=== PATIENT | male | born 1955 | race Caucasian/White ===

== ENCOUNTER 2024-02-17 12:14 | Emergency (ER) | payer MEDICARE, OTHER, SELFPAY ==
[2024-02-17] VITALS (7 sets, daily range): BP systolic 92–123; BP diastolic 60–71
[2024-02-17 13:22] LABS: % Basophils 0.3 % (0-2); % Immature Granulocytes 0.7 % (0-0.5); % Lymphocytes 8.5 % (20.5-51.1); % Monocytes 8.1 % (1.7-9.3); % Neutrophils 82.4 % (42.2-75.2); Absolute Immature Granulocytes 0.1 10^3/uL (0-0.05); Absolute Lymphocytes 0.9 10^3/uL (1.2-3.4); Absolute Monocytes 0.8 10^3/uL (0.1-0.6); Absolute Neutrophils 8.6 10^3/uL (1.4-6.5); Hematocrit 39.6 % (39.0-52.0); Hemoglobin 12.5 g/dL (13.0-18.0); Mean Corp Hgb Conc. 31.6 g/dL (33.0-37.0); Mean Corpuscular Volume 76.2 fL (80.0-94.0); Mean Platelet Volume 9.1 fL (7.4-10.4); Nucleated Red Blood Cells % 0 % (-); Platelet Count 264 10^3/uL (130-400); Red Cell Dist. Width 19.2 % (11.5-14.5); White Blood Cell Count 10.4 10^3/uL (4.8-10.8)
[2024-02-17 13:32] LABS: ALT (SGPT) 19 U/L (0-50); AST (SGOT) 27 U/L (17-59); Albumin 3.9 g/dl (3.5-5.0); Blood Urea Nitrogen 23 mg/dl (9-20); Carbon Dioxide 27 mmol/L (22-30); Glucose 105 mg/dl (70-99); Potassium 4.2 mmol/L (3.5-5.1); Total Bilirubin 0.5 mg/dl (0.2-1.3); Total Protein 6.3 g/dl (6.3-8.2); eGFR > 60.00
[2024-02-17] MEDS: NSS 1000 IV (13:36)
[2024-02-17 13:42] LABS: Alkaline Phosphatase 63 U/L (38-126); Calcium 9.3 mg/dl (8.4-10.2); Chloride 107 mmol/L (98-107); Sodium 139 mmol/L (135-145)
--- NOTE | 2024-02-17 14:00 | ED.GENMED ---
History of Present Illness
<Chevy Dunlap PA-C - Last Filed: 02/18/24 13:06>
General
Chief Complaint: Breathing Problem
Time Seen by Provider: 02/17/24 12:33
History of Present Illness
History of Present Illness:
68-year-old male with history of COPD and former tobacco abuse presents to the emergency department for evaluation of general malaise and fatigue for the past 2 weeks. He also reports exertional shortness of breath that worsens throughout the day.
He can no longer walk more than 5 to 10 feet without feeling winded. Has had generally poor appetite and activity over the past several days as well. Denies chest pain or back pain. Follows with [facility] pulmonology for chronic fungal infection of
the lungs last had a CT scan in October that showed a stable nodular lesion on the left upper lung that has been seen on local imaging as well
Past History
<Chevy Dunlap PA-C - Last Filed: 02/18/24 13:06>
Past History
ED Past Medical History: Asthma, GERD and Hypercholesterolemia
ED Past Surgical History: Orthopedic (Knee surgery) and Other (Sinus surgery, cataract surgery)
Social History
Tobacco: Non-smoker
Alcohol: Occasional
Personal:
Living: with family
Employment: Employed
Family History
Family History: CAD and Other (Father with lung cancer, brother with coronary disease at age 57)
Review of Systems
<Chevy Dunlap PA-C - Last Filed: 02/18/24 13:06>
Review of Systems
Allergies reviewed?: Yes
All Other Systems: ROS reviewed and negative except as documented in HPI and ROS
Phy Exam
<Chevy Dunlap PA-C - Last Filed: 02/18/24 13:06>
Physical Exam
Physical Exam:
GEN: Well appearing, NAD, WDWN
Eyes: PERRLA, EOMs intact, no scleral icterus
HENT: NCAT, oral mucosa moist
Lungs: CTAB, no wheezes, rales, rhonchi, normal chest wall excursion
Cardiac: RRR, no M/R/G, no peripheral edema. Radial pulses 2+ bilat
Abdomen: S, NT, ND, NABS, no masses or hepatosplenomegaly
Neuro: AO x 3
MSK: No gross deformity or ecchymosis. No edema. No digital clubbing
Skin: No rashes, petechiae. Normal color, no pallor or jaundice.
Psych: Calm, cooperative, proper hygiene
Scores
<Chevy Dunlap PA-C - Last Filed: 02/18/24 13:06>
Heart Failure Risk
Heart Failure Risk Score: Not Applicable
Course
<Chevy Dunlap PA-C - Last Filed: 02/18/24 13:06>
Orders/Labs/Results
Orders:
Orders
02/17/24 12:19
Electrocardiogram (*1) Urgent
Reason for Study: Shortness of Breath
02/17/24 12:20
EKG- Treatment ONCE
02/17/24 12:54
CR Chest - 2 Views Urgent
Comment:
Reason For Exam: SOB
02/17/24 13:08
Complete Blood Count/With Diff Urgent
Comprehensive Metabolic Panel Urgent
NT-proBNP Urgent
Troponin I Urgent
02/17/24 13:28
0.9% Sodium Chloride 1000 ml [Nss] 1,000 ml IV BOLUS
02/17/24 14:26
D-Dimer Urgent
02/17/24 15:04
CT Chest Pe Study Urgent
Comment:
Reason For Exam: SOB
02/17/24 19:34
COVID-19 Antigen Urgent
Source: Nasal Swab
Abnormal Lab Results
02/17/24 02/17/24
13:08 14:26
Hgb 12.5 L g/dL
(13.0-18.0)
MCV 76.2 L fL
(80.0-94.0)
MCH 24.0 L pg
(27.0-31.0)
MCHC 31.6 L g/dL
(33.0-37.0)
RDW 19.2 H %
(11.5-14.5)
Abs Immat Gran (auto) 0.1 H 10^3/uL
(0-0.05)
Absolute Neuts (auto) 8.6 H 10^3/uL
(1.4-6.5)
Absolute Lymphs (auto) 0.9 L 10^3/uL
(1.2-3.4)
Absolute Monos (auto) 0.8 H 10^3/uL
(0.1-0.6)
Immature Gran % 0.7 H %
(0-0.5)
Neutrophils % 82.4 H %
(42.2-75.2)
Lymphocytes % 8.5 L %
(20.5-51.1)
D-Dimer 0.81 H ug/mlFEU
(0.00-0.50)
BUN 23 H mg/dl
(9-20)
Glucose 105 H mg/dl
(70-99)
02/17/24 13:08
02/17/24 13:08
Vital Signs
Initial and Last Documented VS:
Initial Vital Signs
Temp Pulse Resp Pulse Ox
98.0 F 99 18 95
02/17/24 12:15 02/17/24 12:15 02/17/24 12:15 02/17/24 12:15
Last Documented Vital Signs
Temp Pulse Resp BP Pulse Ox
98.0 F 82 28 113/66 95
02/17/24 12:15 02/17/24 19:15 02/17/24 19:15 02/17/24 19:00 02/17/24 19:15
<Naima Church PA-C - Last Filed: 02/17/24 21:38>
Orders/Labs/Results
Orders:
Orders
02/17/24 12:19
Electrocardiogram (*1) Urgent
Reason for Study: Shortness of Breath
02/17/24 12:20
EKG- Treatment ONCE
02/17/24 12:54
CR Chest - 2 Views Urgent
Comment:
Reason For Exam: SOB
02/17/24 13:08
Complete Blood Count/With Diff Urgent
Comprehensive Metabolic Panel Urgent
NT-proBNP Urgent
Troponin I Urgent
02/17/24 13:28
0.9% Sodium Chloride 1000 ml [Nss] 1,000 ml IV BOLUS
02/17/24 14:26
D-Dimer Urgent
02/17/24 15:04
CT Chest Pe Study Urgent
Comment:
Reason For Exam: SOB
02/17/24 19:34
COVID-19 Antigen Urgent
Source: Nasal Swab
Abnormal Lab Results
02/17/24 02/17/24
13:08 14:26
Hgb 12.5 L g/dL
(13.0-18.0)
MCV 76.2 L fL
(80.0-94.0)
MCH 24.0 L pg
(27.0-31.0)
MCHC 31.6 L g/dL
(33.0-37.0)
RDW 19.2 H %
(11.5-14.5)
Abs Immat Gran (auto) 0.1 H 10^3/uL
(0-0.05)
Absolute Neuts (auto) 8.6 H 10^3/uL
(1.4-6.5)
Absolute Lymphs (auto) 0.9 L 10^3/uL
(1.2-3.4)
Absolute Monos (auto) 0.8 H 10^3/uL
(0.1-0.6)
Immature Gran % 0.7 H %
(0-0.5)
Neutrophils % 82.4 H %
(42.2-75.2)
Lymphocytes % 8.5 L %
(20.5-51.1)
D-Dimer 0.81 H ug/mlFEU
(0.00-0.50)
BUN 23 H mg/dl
(9-20)
Glucose 105 H mg/dl
(70-99)
02/17/24 13:08
02/17/24 13:08
Vital Signs
Initial and Last Documented VS:
Initial Vital Signs
Temp Pulse Resp Pulse Ox
98.0 F 99 18 95
02/17/24 12:15 02/17/24 12:15 02/17/24 12:15 02/17/24 12:15
Last Documented Vital Signs
Temp Pulse Resp BP Pulse Ox
98.0 F 82 28 113/66 95
02/17/24 12:15 02/17/24 19:15 02/17/24 19:15 02/17/24 19:00 02/17/24 19:15
<Naima Church PA-C - Last Filed: 02/17/24 21:38>
MDM/Problems Addressed
MDM/Problems Addressed:
02/17/2024 1930PM
Carmina Church PA-C assumed care of the patient at [address] scan. Patient has a known history of COPD and a known left upper lobe pulmonary mass followed by [facility]. They apparently attempted a biopsy previously but were unsuccessful.
Regardless it is being monitored and the patient had a CT scan in October at [facility] which we are not able to compare to. He does have a slightly enlarged left upper lobe mass when comparing to a previous CT from April 2023 but he also has a new
right-sided pulmonary nodule and a stable appearing right lower lobe pulmonary nodule. There is otherwise no findings to explain the patient's shortness of breath. He is resting comfortably in no distress with clear lungs and a sat of 94%. When
he ambulates he does feel some symptoms of dyspnea, his pulse ox stays above 90%. 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 I discussed the case with ED attending "Belinda"Dutch who agreed. This point patient already has oral steroids daily and he uses neb treatments. Do not feel there is necessarily a reason to place the patient on antibiotics. I did send a COVID swab though the symptoms have been going on for
several weeks he asked me to just check to make sure it was not COVID which was negative. Although this could be outside the window of testing
Importantly his EKG, troponin were negative.
<Chevy Dunlap PA-C - Last Filed: 02/18/24 13:06>
Comment
Comment:
While EKG independently interpreted by me shows a normal sinus rhythm with a ST depressions diffusely, may gross ST changes concerning for ischemia
*Critical Care Note
Total Time (30-74mins, 75-104mins- exclusive of procedures): Not Applicable
ED Attending Note
<Chevy Dunlap PA-C - Last Filed: 02/18/24 13:06>
-
Portions of this chart may have been created with voice recognition software.� Occasional wrong word or��sound alike� substitutions may have occurred due to the inherent limitations of voice recognition software.
Discharge Plan
Departure
Patient Disposition: Home (Routine Discharge)
Date of Disposition: 02/17/24
Time of Disposition: 19:17
Patient with high blood pressure during this ER visit?: No
Discharge Problem:
Mass of right lung, Shortness of breath
Instructions: Shortness of Breath (Dyspnea) (DC)
Prescriptions:
No Action
prednisone 10 mg Tablet
10 mg PO DAILY
albuterol sulfate 2.5 mg /3 mL (0.083 %) Solution For Nebulization
2.5 mg INHALATION Q4H PRN (Reason: SOB)
albuterol 90 mcg/actuation Aerosol
90 mcg INHALATION Q4HPRN PRN (Reason: SOB)
sertraline 50 mg Tablet
50 mg PO DAILY
voriconazole 200 mg Tablet
200 mg PO Q12H
ezetimibe 10 mg Tablet
10 mg PO DAILY
rosuvastatin 10 mg Tablet
10 mg PO Q48H
rosuvastatin 10 mg Tablet
20 mg PO Q48H
omeprazole 20 mg Tablet,Delayed Release (Dr/Ec)
20 mg PO DAILY
Trelegy Ellipta 200-62.5-25 mcg Blister With Device
1 inh INHALATION DAILY
Brilinta 90 mg Tablet
90 mg PO BID Qty: 180 3RF
aspirin 81 mg Tablet,Chewable
81 mg PO DAILY 90 Days Qty: 90 0RF
metoprolol succinate [Toprol XL] 25 mg tablet extended release 24 hr
25 mg PO DAILY Qty: 90 3RF
Referrals:
Luis Cisneros MD [Family Provider] -
Activity Restrictions/Additional Instructions:
See your lung specialist at [facility] for follow up on the abnormal right lung mass
return for any concerns.
Interventions
Interventions:
*Risk Screen - Suicide Last Done: 02/17/24 12:15
*General Assessment Last Done: 02/17/24 12:15
*Neglect/Abuse Screening Last Done: 02/17/24 12:15
ED- Fall Risk Assessment Last Done: 02/17/24 20:24
*ED COVID-19 Vaccine History Last Done: 02/17/24 13:11
*Nursing Disposition Last Done: 02/17/24 20:24
ED- Cardiac Assessment Last Done: 02/17/24 13:11
ED- Pulmonary Assessment Last Done: 02/17/24 13:11
Discharge Date and Time
Discharge Date/Time: 02/17/24 20:24
Print Language: [place]
[2024-02-17 14:05] LABS: NT-proBNP 160 pg/ml; Troponin I < 0.012 ng/ml
[2024-02-17 14:52] LABS: D-Dimer 0.81 ug/mlFEU (0.00-0.50)
[2024-02-17 19:55] LABS: COVID-19 Antigen Negative (Negative)
== END 2024-02-17 20:24 | disposition home or self-care (01) ==
LOC: EMR 12:14
PROVIDERS: Physician Assistant; EMERGENCY PHYSICIAN Emergency Medicine; FAMILY PHYSICIAN Internal Medicine
DX: R91.8 Other nonspecific abnormal finding of lung field (principal); R06.02 Shortness of breath
CPT/HCPCS: 99284; 71046; 71275; 80053; 83880; 84484; 85025; 85379; 87811; 93005; Q9967

== ENCOUNTER 2024-07-19 14:25 | Emergency (ER) | payer MEDICARE, OTHER, SELFPAY ==
[2024-07-19 14:25] VITALS: BMI 19.8
[2024-07-19 14:30] VITALS: BP 144/82
--- NOTE | 2024-07-19 17:48 | ED.GENMED ---
History of Present Illness
General
Chief Complaint: Breathing Problem
Source: patient and family
Time Seen by Provider: 07/19/24 17:34
History of Present Illness
History of Present Illness:
68-year-old male complaining of weeks of increased cough congestion myalgias nausea shortness of breath shortness of breath with exertion and fatigue. Much worse for last 3 to 4 days. No fever. No pleuritic pain.
Past History
Past History
ED Past Medical History: Asthma, COPD, GERD and Hypercholesterolemia
ED Past Surgical History: Orthopedic (Knee surgery) and Other (Sinus surgery, cataract surgery)
Social History
Tobacco: Non-smoker
Alcohol: Occasional
Personal:
Living: with family
Employment: Employed
Family History
Family History: CAD and Other (Father with lung cancer, brother with coronary disease at age 57)
Phy Exam
Physical Exam
Physical Exam:
GENERAL: Alert and oriented in no apparent distress
EYE: Orbits normal.
NECK: Supple
ENT: Pharynx without erythema
CARDIAC: Mildly tachycardic and regular no murmur
LUNGS: No obvious tachypnea at rest. Diffuse distant breath sounds. No wheezing or rhonchi
ABDOMEN: Soft, without focal tenderness or distention
NEUROLOGICAL: Alert and oriented , grossly non-focal
SKIN: Warm and dry, no rash or lesion, no discoloration, skin intact.
MUSCULOSKELETAL: No edema,no deformity.Good color
PSYCH: Normal and appropriate interaction.
Scores
Heart Failure Risk
Heart Failure Risk Score: Not Applicable
Course
Orders/Labs/Results
Orders:
Orders
07/19/24 14:36
Electrocardiogram (*1) Urgent
Reason for Study: Chest Pain
EKG- Treatment ONCE
07/19/24 14:37
CXR2 [CR Chest - 2 Views ] Urgent
Comment:
Reason For Exam: SOB
07/19/24 14:38
Ribs, Right 2 View No PA Chest [CR Ribs-right 2 Vw No Pa Chest] Urgent
Comment:
Reason For Exam: rib injury, fall
07/19/24 17:42
Dexamethasone Sod Phosphate [Decadron] 6 mg IV NOW STA
07/19/24 17:53
Complete Blood Count/With Diff Urgent
Comprehensive Metabolic Panel Urgent
Troponin I Urgent
07/19/24 18:04
COVID-19 Antigen Urgent
Source: Nasal Swab
Influenza A+B Rapid Molecular Urgent
FERNANDO Source: Nasal Swab
Specimen Description:
07/19/24 20:22
Doxycycline [Vibramycin] 100 mg PO NOW STA
Abnormal Lab Results
07/19/24
17:53
WBC 12.4 H 10^3/uL
(4.8-10.8)
MCV 78.8 L fL
(80.0-94.0)
MCH 24.6 L pg
(27.0-31.0)
MCHC 31.3 L g/dL
(33.0-37.0)
RDW 19.7 H %
(11.5-14.5)
Abs Immat Gran (auto) 0.1 H 10^3/uL
(0-0.05)
Absolute Neuts (auto) 8.9 H 10^3/uL
(1.4-6.5)
Absolute Monos (auto) 1.2 H 10^3/uL
(0.1-0.6)
Immature Gran % 0.8 H %
(0-0.5)
Lymphocytes % 16.9 L %
(20.5-51.1)
Monocytes % 9.8 H %
(1.7-9.3)
07/19/24 17:53
07/19/24 17:53
Vital Signs
Initial and Last Documented VS:
Initial Vital Signs
Temp Pulse Resp BP Pulse Ox
97.8 F 109 20 144/82 97
07/19/24 14:30 07/19/24 14:30 07/19/24 14:30 07/19/24 14:30 07/19/24 14:30
Last Documented Vital Signs
Temp Pulse Resp BP Pulse Ox
98.9 F 84 23 113/80 97
07/19/24 16:00 07/19/24 20:15 07/19/24 20:15 07/19/24 20:00 07/19/24 19:30
MDM/Problems Addressed
Differential Diagnosis Includes:
Patient with increased shortness of breath respiratory symptoms cough congestion. Differential would include primary respiratory issue although I see pneumonia on the x-ray. No CHF on the x-ray. COVID, influenza, viral syndrome, cardiac.
*Radiology
Radiology exam reviewed: preliminary read by ED provider (No acute findings)
*Pulse Oximetry
Patient hypoxic: no
*EKG
Interpreted by ED Provider?: Yes
Interpretation: abnormal
Comparison EKG: changes noted
Heart Rate: 105
Rate: tachycardiac
Rhythm: sinus
[place]: normal axis
QRS Pattern: normal QRS
Ischemia: non-specific ST changes
*Ct Scan Tech Interpretation
Rate: tachycardiac
Interpretation: abnormal
Heart Rate: 106
Rhythm: sinus
*Critical Care Note
Total Time (30-74mins, 75-104mins- exclusive of procedures): Not Applicable
ED Attending Note
-
Portions of this chart may have been created with voice recognition software.� Occasional wrong word or��sound alike� substitutions may have occurred due to the inherent limitations of voice recognition software.
Discharge Plan
Departure
Patient Disposition: Home (Routine Discharge)
Date of Disposition: 07/19/24
Time of Disposition: 20:24
Patient with high blood pressure during this ER visit?: Yes
Discharge Problem:
COPD exacerbation/upper respiratory infe, Fatigue/weakness
Instructions: Fatigue (DC), Shortness of Breath (Dyspnea) (DC), Weakness
Prescriptions:
New
doxycycline hyclate 100 mg capsule
100 mg PO BID 10 Days Qty: 20 0RF
prednisone 10 mg tablet
10 mg PO DAILY Qty: 30 0RF
Rx Instructions:
4 tablets day 1. Then 1 less tablet every third day until gone
No Action
prednisone 10 mg Tablet
10 mg PO DAILY
albuterol sulfate 2.5 mg /3 mL (0.083 %) Solution For Nebulization
2.5 mg INHALATION Q4H PRN (Reason: SOB)
albuterol 90 mcg/actuation Aerosol
90 mcg INHALATION Q4HPRN PRN (Reason: SOB)
sertraline 50 mg Tablet
50 mg PO DAILY
voriconazole 200 mg Tablet
200 mg PO Q12H
ezetimibe 10 mg Tablet
10 mg PO DAILY
rosuvastatin 10 mg Tablet
10 mg PO Q48H
rosuvastatin 10 mg Tablet
20 mg PO Q48H
omeprazole 20 mg Tablet,Delayed Release (Dr/Ec)
20 mg PO DAILY
Trelegy Ellipta 200-62.5-25 mcg Blister With Device
1 inh INHALATION DAILY
Brilinta 90 mg Tablet
90 mg PO BID Qty: 180 3RF
aspirin 81 mg Tablet,Chewable
81 mg PO DAILY 90 Days Qty: 90 0RF
metoprolol succinate [Toprol XL] 25 mg tablet extended release 24 hr
25 mg PO DAILY Qty: 90 3RF
Referrals:
Luis Cisneros MD [Family Provider] - Follow up in 2-3 days
Interventions
Interventions:
*Risk Screen - Suicide Last Done: 07/19/24 14:30
*General Assessment Last Done: 07/19/24 14:30
*Neglect/Abuse Screening Last Done: 07/19/24 14:30
*ED COVID-19 Vaccine History Last Done: 07/19/24 17:58
*Nursing Disposition Last Done: 07/19/24 21:17
ED- Cardiac Assessment Last Done: 07/19/24 18:00
ED- Pulmonary Assessment Last Done: 07/19/24 18:00
Discharge Date and Time
Discharge Date/Time: 07/19/24 21:17
Print Language: [place]
[2024-07-19 17:59] VITALS: BP 135/84
[2024-07-19 18:01] LABS: % Basophils 0.4 % (0-2); % Immature Granulocytes 0.8 % (0-0.5); % Lymphocytes 16.9 % (20.5-51.1); % Monocytes 9.8 % (1.7-9.3); % Neutrophils 72.1 % (42.2-75.2); Absolute Basophils 0.1 10^3/uL (0-0.2); Absolute Immature Granulocytes 0.1 10^3/uL (0-0.05); Absolute Lymphocytes 2.1 10^3/uL (1.2-3.4); Absolute Monocytes 1.2 10^3/uL (0.1-0.6); Absolute Neutrophils 8.9 10^3/uL (1.4-6.5); Hematocrit 44.1 % (39.0-52.0); Hemoglobin 13.8 g/dL (13.0-18.0); Mean Corp Hgb Conc. 31.3 g/dL (33.0-37.0); Mean Corpuscular Hgb 24.6 pg (27.0-31.0); Mean Corpuscular Volume 78.8 fL (80.0-94.0); Mean Platelet Volume 9.7 fL (7.4-10.4); Nucleated Red Blood Cells % 0 % (-); Platelet Count 284 10^3/uL (130-400); Red Cell Dist. Width 19.7 % (11.5-14.5); White Blood Cell Count 12.4 10^3/uL (4.8-10.8)
[2024-07-19 18:25] LABS: ALT (SGPT) 20 U/L (0-50); AST (SGOT) 26 U/L (17-59); Albumin 4.4 g/dl (3.5-5.0); Alkaline Phosphatase 88 U/L (38-126); Blood Urea Nitrogen 19 mg/dl (9-20); Calcium 9.6 mg/dl (8.4-10.2); Carbon Dioxide 26 mmol/L (22-30); Chloride 101 mmol/L (98-107); Estimated Creatinine Clearance 68 ml/min; Glucose 99 mg/dl (70-99); Potassium 3.9 mmol/L (3.5-5.1); Sodium 137 mmol/L (135-145); Total Bilirubin 0.4 mg/dl (0.2-1.3); eGFR > 60.00
[2024-07-19 18:26] LABS: Troponin I < 0.012 ng/ml
[2024-07-19 18:35] LABS: COVID-19 Antigen Negative (Negative)
[2024-07-19] MEDS: DECADRON 6 MG IV (18:38)
[2024-07-19 19:00] VITALS: BP 110/68
[2024-07-19 20:00] VITALS: BP 113/80
[2024-07-19] MEDS: VIBRAMYCIN 100 MG PO (20:27)
== END 2024-07-19 21:17 | disposition home or self-care (01) ==
LOC: EMR 14:25
PROVIDERS: Emergency Medicine; EMERGENCY PHYSICIAN Emergency Medicine; FAMILY PHYSICIAN Internal Medicine
DX: J44.1 Chronic obstructive pulmonary disease with (acute) exacerbation (principal); J06.9 Acute upper respiratory infection, unspecified; R53.83 Other fatigue; R53.1 Weakness; R11.0 Nausea; Z11.52 Encounter for screening for COVID-19; R00.0 Tachycardia, unspecified; R03.0 Elevated blood-pressure reading, without diagnosis of hypertension; K21.9 Gastro-esophageal reflux disease without esophagitis; E78.00 Pure hypercholesterolemia, unspecified; Z79.82 Long term (current) use of aspirin; Z88.1 Allergy status to other antibiotic agents; Z88.8 Allergy status to other drugs, medicaments and biological substances
CPT/HCPCS: 99284; 96374; 71046; 71100; 80053; 84484; 85025; 87502; 87811; 93005

== ENCOUNTER 2024-07-22 00:37 | Emergency (ER) | payer MEDICARE, OTHER, SELFPAY ==
[2024-07-22 00:49] VITALS: BP 122/77
[2024-07-22 01:01] LABS: % Basophils 0.2 % (0-2); % Immature Granulocytes 1.1 % (0-0.5); % Lymphocytes 3.9 % (20.5-51.1); % Monocytes 11.2 % (1.7-9.3); % Neutrophils 83.6 % (42.2-75.2); Absolute Immature Granulocytes 0.1 10^3/uL (0-0.05); Absolute Lymphocytes 0.5 10^3/uL (1.2-3.4); Absolute Monocytes 1.5 10^3/uL (0.1-0.6); Absolute Neutrophils 10.9 10^3/uL (1.4-6.5); Hematocrit 40.7 % (39.0-52.0); Hemoglobin 12.7 g/dL (13.0-18.0); Mean Corp Hgb Conc. 31.2 g/dL (33.0-37.0); Mean Corpuscular Hgb 24.8 pg (27.0-31.0); Mean Corpuscular Volume 79.5 fL (80.0-94.0); Mean Platelet Volume 9.2 fL (7.4-10.4); Nucleated Red Blood Cells % 0 % (-); Platelet Count 310 10^3/uL (130-400); Red Blood Cell Count 5.12 10^6/uL (4.70-6.10); Red Cell Dist. Width 19.7 % (11.5-14.5)
[2024-07-22 01:17] LABS: ALT (SGPT) 29 U/L (0-50); AST (SGOT) 33 U/L (17-59); Albumin 4.2 g/dl (3.5-5.0); Alkaline Phosphatase 78 U/L (38-126); Blood Urea Nitrogen 22 mg/dl (9-20); Calcium 9.1 mg/dl (8.4-10.2); Carbon Dioxide 25 mmol/L (22-30); Chloride 102 mmol/L (98-107); Glucose 193 mg/dl (70-99); Potassium 3.9 mmol/L (3.5-5.1); Sodium 139 mmol/L (135-145); Total Bilirubin 0.2 mg/dl (0.2-1.3); Total Protein 6.7 g/dl (6.3-8.2); eGFR > 60.00
[2024-07-22 01:28] LABS: Troponin I < 0.012 ng/ml
[2024-07-22 02:03] VITALS: BP 126/93
--- NOTE | 2024-07-22 02:09 | ED.GENMED ---
History of Present Illness
<JOCELYN Choudhary - Last Filed: 07/23/24 03:07>
General
Chief Complaint: Chest Pain
Source: patient
Exam Limitations: none
Time Seen by Provider: 07/22/24 01:56
History of Present Illness
History of Present Illness:
This is a 69 year old male that comes in with c/o right sided chest pain. States that over a year ago he didn't feel well. States that he came in as his pain was different then he normally gets with his COPD. States that he was having a heart
attack. States that tonight this right sided pain felt the same and is in the same spot. States that he was here on Sunday night as he had been in bed all weak. States that he was place on a steroid taper and given Doxycycline. States that he is
feeling better form this. States that he is always SOB. States that he had a little nausea and is occasionally dizzy. Denies any fever, chills, abd pain, vomiting, diarrhea, headache, urinary burning.
Past History
<JOCELYN Choudhary - Last Filed: 07/23/24 03:07>
Past History
ED Past Medical History: Asthma, COPD, GERD, Hypercholesterolemia, IA and Other (Chronic fungal lung infection)
ED Past Surgical History: Cardiac (Stent X 1), Orthopedic (Knee surgery) and Other (Sinus surgery, cataract surgery)
Social History
Tobacco: Former smoker
Alcohol: Daily (Beer or wine 2-3 glasses)
Personal:
Living: with family
Employment: Employed
Family History
Family History: CAD and Other (Father with lung cancer, brother with coronary disease at age 57)
Review of Systems
<JOCELYN Choudhary - Last Filed: 07/23/24 03:07>
Review of Systems
All Other Systems: ROS reviewed and negative except as documented in HPI and ROS
Constitutional: Reports no symptoms; Denies fever or chills
EENT: Reports no symptoms
Respiratory: Reports trouble breathing (Always); Denies cough
Cardiac: Reports chest pain
ABD/GI: Reports nausea; Denies abdominal pain, vomiting or diarrhea
: Reports no symptoms; Denies dysuria, frequency or urgency
Musculoskeletal: Reports no symptoms
Skin: Reports no symptoms
Neurological: Reports dizzy (Occasional ); Denies headache
Psychiatric: Reports no symptoms
Phy Exam
<JOCELYN Choudhary - Last Filed: 07/23/24 03:07>
General Physical Exam
General Presentation: well appearing and no apparent distress
General age: appears stated age
General Skin: warm and dry
General Habitus: elderly
General Mental: alert
General Hydration: appears well hydrated
ENT Exam
ENT Exam: TM's normal, pharynx normal and neck supple
Eye Exam
Eye Exam: EOMI
Cardiovascular Exam
Cardiovascular Exam: regular rate/rhythm, no edema, no murmur and normal peripheral pulses
Pulmonary Exam
Pulmonary Exam: no respiratory distress, no rales, chest non tender, no crackles, no rhonchi, no wheezing, decreased breath sounds and other (Occasional dry cough)
Gastrointestinal Exam
Gastrointestinal Exam: normal bowel sounds, non tender, soft, no organomegaly, no pulsatile mass and non distended
Musculoskeletal Exam
Musculoskeletal Exam: full ROM and no edema
Skin Exam
Skin Exam: normal color, warm/dry, no rash and no petechia
Scores
<JOCELYN Choudhary - Last Filed: 07/23/24 03:07>
Heart Score for Chest Pain Patients
STEMI patient?: No
History: Slightly or Non-Suspicious
ECG: Normal
Age: >/= 65 years
Risk Factors: >/= 3 Risk Factors or History of CAD
Troponin: </= Normal Limit
Heart Score for Chest Pain Patients: 4
Heart Score Risk: 20.3% MACE over next 6 weeks
Course
<JOCELYN Choudhary - Last Filed: 07/23/24 03:07>
Orders/Labs/Results
Orders:
Orders
07/22/24 00:39
Electrocardiogram (*1) Urgent
Reason for Study: Chest Pain
Cardiac Monitoring- Treatment ONCE
EKG- Treatment ONCE
IV Insert/Care/Rem.- Treatment PRN
O2 Therapy [RESP] Urgent
Titrate/Wean O2 to maintain O2 sat greater than (%): 90
Special Instructions: Maintain sats >/=90%
Pulse Ox/spot Check [RESP] Urgent
Quantity: 1
Special Instructions: ON ROOM AIR
07/22/24 00:54
Complete Blood Count/With Diff Urgent
Comprehensive Metabolic Panel Urgent
Troponin I Urgent
07/22/24 02:08
EKG- Treatment ONCE
07/22/24 02:09
CR Chest - 2 Views Urgent
Comment:
Reason For Exam: Right sided chest pain
07/22/24 02:29
D-Dimer Urgent
07/22/24 02:56
Acetaminophen [Tylenol] 650 mg PO NOW STA
07/22/24 03:27
CT Chest PE Study Urgent
Comment:
Reason For Exam: positive dimer, chest pain and sob
07/22/24 03:50
Electrocardiogram (*1) Urgent
Reason for Study: Chest Pain
Other Reason for Exam: Repeat with Troponin
07/22/24 04:02
Troponin I Urgent
Abnormal Lab Results
07/22/24 07/22/24
00:54 02:29
WBC 13.0 H 10^3/uL
(4.8-10.8)
Hgb 12.7 L g/dL
(13.0-18.0)
MCV 79.5 L fL
(80.0-94.0)
MCH 24.8 L pg
(27.0-31.0)
MCHC 31.2 L g/dL
(33.0-37.0)
RDW 19.7 H %
(11.5-14.5)
Abs Immat Gran (auto) 0.1 H 10^3/uL
(0-0.05)
Absolute Neuts (auto) 10.9 H 10^3/uL
(1.4-6.5)
Absolute Lymphs (auto) 0.5 L 10^3/uL
(1.2-3.4)
Absolute Monos (auto) 1.5 H 10^3/uL
(0.1-0.6)
Immature Gran % 1.1 H %
(0-0.5)
Neutrophils % 83.6 H %
(42.2-75.2)
Lymphocytes % 3.9 L %
(20.5-51.1)
Monocytes % 11.2 H %
(1.7-9.3)
D-Dimer 0.56 H ug/mlFEU
(0.00-0.50)
BUN 22 H mg/dl
(9-20)
Glucose 193 H mg/dl
(70-99)
07/22/24 00:54
07/22/24 00:54
Leukocytosis (patient on steroids), Hgb slightly low. Anemia, Dehydration. Hyperglycemia. Troponin <0.012
Second Troponin 0.013
Vital Signs
Initial and Last Documented VS:
Initial Vital Signs
Temp Pulse Resp BP Pulse Ox
98.0 F 120 20 122/77 97
07/22/24 00:49 07/22/24 00:49 07/22/24 00:49 07/22/24 00:49 07/22/24 00:49
Last Documented Vital Signs
Temp Pulse Resp BP Pulse Ox
98.0 F 74 13 126/78 95
07/22/24 00:49 07/22/24 05:15 07/22/24 05:15 07/22/24 05:25 07/22/24 04:00
<Pau Nunes, - Last Filed: 07/22/24 05:14>
Orders/Labs/Results
Orders:
Orders
07/22/24 00:39
Electrocardiogram (*1) Urgent
Reason for Study: Chest Pain
Cardiac Monitoring- Treatment ONCE
EKG- Treatment ONCE
IV Insert/Care/Rem.- Treatment PRN
O2 Therapy [RESP] Urgent
Titrate/Wean O2 to maintain O2 sat greater than (%): 90
Special Instructions: Maintain sats >/=90%
Pulse Ox/spot Check [RESP] Urgent
Quantity: 1
Special Instructions: ON ROOM AIR
07/22/24 00:54
Complete Blood Count/With Diff Urgent
Comprehensive Metabolic Panel Urgent
Troponin I Urgent
07/22/24 02:08
EKG- Treatment ONCE
07/22/24 02:09
CR Chest - 2 Views Urgent
Comment:
Reason For Exam: Right sided chest pain
07/22/24 02:29
D-Dimer Urgent
07/22/24 02:56
Acetaminophen [Tylenol] 650 mg PO NOW STA
07/22/24 03:27
CT Chest PE Study Urgent
Comment:
Reason For Exam: positive dimer, chest pain and sob
07/22/24 03:50
Electrocardiogram (*1) Urgent
Reason for Study: Chest Pain
Other Reason for Exam: Repeat with Troponin
07/22/24 04:02
Troponin I Urgent
Abnormal Lab Results
07/22/24 07/22/24
00:54 02:29
WBC 13.0 H 10^3/uL
(4.8-10.8)
Hgb 12.7 L g/dL
(13.0-18.0)
MCV 79.5 L fL
(80.0-94.0)
MCH 24.8 L pg
(27.0-31.0)
MCHC 31.2 L g/dL
(33.0-37.0)
RDW 19.7 H %
(11.5-14.5)
Abs Immat Gran (auto) 0.1 H 10^3/uL
(0-0.05)
Absolute Neuts (auto) 10.9 H 10^3/uL
(1.4-6.5)
Absolute Lymphs (auto) 0.5 L 10^3/uL
(1.2-3.4)
Absolute Monos (auto) 1.5 H 10^3/uL
(0.1-0.6)
Immature Gran % 1.1 H %
(0-0.5)
Neutrophils % 83.6 H %
(42.2-75.2)
Lymphocytes % 3.9 L %
(20.5-51.1)
Monocytes % 11.2 H %
(1.7-9.3)
D-Dimer 0.56 H ug/mlFEU
(0.00-0.50)
BUN 22 H mg/dl
(9-20)
Glucose 193 H mg/dl
(70-99)
07/22/24 00:54
07/22/24 00:54
Vital Signs
Initial and Last Documented VS:
Initial Vital Signs
Temp Pulse Resp BP Pulse Ox
98.0 F 120 20 122/77 97
07/22/24 00:49 07/22/24 00:49 07/22/24 00:49 07/22/24 00:49 07/22/24 00:49
Last Documented Vital Signs
Temp Pulse Resp BP Pulse Ox
98.0 F 74 13 126/78 95
07/22/24 00:49 07/22/24 05:15 07/22/24 05:15 07/22/24 05:25 07/22/24 04:00
<JOCELYN Choudhary - Last Filed: 07/23/24 03:07>
MDM/Problems Addressed
Differential Diagnosis Includes:
PE, Coronary syndrome,
MDM/Problems Addressed:
This is a 69 year old male that comes in with c/o right sided chest pain. States that this felt the same as when he had his heart attack and wanted to get it checked out. States that he was also here on Sunday night and was place on Steroids and
antibiotic
Will check labs, chest x-ray
Patient waiting for D-dimer and Troponin. Dr. Nunes to follow up.
Chronic conditions affecting care: CAD, COPD and Asthma
Acute Exacerbation and/or Progression of Chronic Illness: CAD, COPD and Asthma
<JOCELYN Choudhary - Last Filed: 07/23/24 03:07>
*Radiology
Radiology exam reviewed: preliminary read by ED provider (Chest - negative for active disease.)
*Pulse Oximetry
Patient hypoxic: no
*EKG
Interpreted by ED Provider?: Yes
Heart Rate: 110
Rate: tachycardiac
Rhythm: sinus tachycardia
[place]: normal axis
Interval: normal interval
QRS Pattern: normal QRS
Ischemia: no ischemia
*Relay Mechanic Interpretation
Rate: tachycardiac
Heart Rate: 104
Rhythm: sinus tachycardia
*Critical Care Note
Total Time (30-74mins, 75-104mins- exclusive of procedures): Not Applicable
ED Attending Note
<JOCELYN Choudhary - Last Filed: 07/23/24 03:07>
-
Portions of this chart may have been created with voice recognition software.� Occasional wrong word or��sound alike� substitutions may have occurred due to the inherent limitations of voice recognition software.
<Pau Nunes DO - Last Filed: 07/22/24 05:14>
ED Attending Note
Patient seen and examined by attending physician: Yes
I performed the substantive portion of visit, reviewed & personally made and approve the management plan that is documented in note by myself or NESHA.: Yes
I performed a history and physical exam of patient and discussed management with resident, I reviewed resident's note and agree with documented findings and plan of care.: Yes
ED Attending Note:
Attending signout note
03:00 - Assuming care of patient, 69-year-old male with history of CAD, COPD and asthma presenting for right-sided chest pain which started tonight. Does note prior cardiac history which was his primary concern. Denies exertional component.
Hemodynamically stable in the emergency department. Workup at this time is grossly unremarkable with nonischemic EKG, negative troponin. Pending dimer for presenting tachycardia. Plan for repeat troponin.
03:20 -dimer positive, will plan for CT angio
05:10 -CT is negative for PE or acute disease. Scattered pulmonary nodules, which patient is aware of. EKG repeated without significant interval change. At this time patient notes that his symptoms have improved. Feel stable for discharge with
close interval follow-up with cardiology. Return precautions discussed and patient verbalized understanding
Discharge Plan
Departure
Patient Disposition: Home (Routine Discharge)
Date of Disposition: 07/22/24
Time of Disposition: 05:14
Patient with high blood pressure during this ER visit?: No
Condition: Good
Discharge Problem:
Chest pain
Instructions: Chest pain - Discharge instructions
Prescriptions:
No Action
prednisone 10 mg Tablet
10 mg PO DAILY
albuterol sulfate 2.5 mg /3 mL (0.083 %) Solution For Nebulization
2.5 mg INHALATION Q4H PRN (Reason: SOB)
albuterol 90 mcg/actuation Aerosol
90 mcg INHALATION Q4HPRN PRN (Reason: SOB)
sertraline 50 mg Tablet
50 mg PO DAILY
voriconazole 200 mg Tablet
200 mg PO Q12H
ezetimibe 10 mg Tablet
10 mg PO DAILY
rosuvastatin 10 mg Tablet
20 mg PO DAILY
omeprazole 20 mg Tablet,Delayed Release (Dr/Ec)
20 mg PO DAILY
aspirin 81 mg Tablet,Chewable
81 mg PO DAILY 90 Days Qty: 90 0RF
doxycycline hyclate 100 mg capsule
100 mg PO BID 10 Days Qty: 20 0RF
prednisone 10 mg tablet
10 mg PO DAILY Qty: 30 0RF
Rx Instructions:
4 tablets day 1. Then 1 less tablet every third day until gone
metoprolol succinate [Toprol XL] 25 mg tablet extended release 24 hr
12.5 mg PO DAILY
Referrals:
Luis Cisneros MD [Family Provider] -
Activity Restrictions/Additional Instructions:
You were seen in the emergency department for chest pain
You were found to have normal EKG, blood work, CT imaging of your chest. It does not appear that you are having a heart attack at this time, however given your cardiac history we recommend that you follow-up closely with your battery starter.
Please follow-up closely with your primary care physician.
Return to the emergency department for any worsening of your symptoms, or any development of chest pain, difficulty breathing, abdominal pain with persistent vomiting and inability to tolerate food or liquid by mouth (concern for dehydration),
weakness, headache or confusion, fever greater than 100.4, or any additional symptoms that are concerning to you.
Thank you for choosing [facility].
Interventions
Interventions:
*Risk Screen - Suicide Last Done: 07/22/24 00:48
*General Assessment Last Done: 07/22/24 00:48
*Neglect/Abuse Screening Last Done: 07/22/24 00:48
ED- Fall Risk Assessment Last Done: 07/22/24 02:15
*ED COVID-19 Vaccine History Last Done: 07/22/24 02:15
*Nursing Disposition Last Done: 07/22/24 05:25
ED- Cardiac Assessment Last Done: 07/22/24 02:16
Discharge Date and Time
Discharge Date/Time: 07/22/24 05:25
Print Language: GREEK
[2024-07-22 02:54] LABS: D-Dimer 0.56 ug/mlFEU (0.00-0.50)
[2024-07-22 04:00] VITALS: BP 123/76
[2024-07-22 04:34] LABS: Troponin I 0.013 ng/ml
[2024-07-22 05:25] VITALS: BP 126/78
== END 2024-07-22 05:25 | disposition home or self-care (01) ==
LOC: EMR 00:37
PROVIDERS: Clinical Nurse Specialist Family Health; EMERGENCY PHYSICIAN Student in an Organized Health Care Education/Training Program; FAMILY PHYSICIAN Internal Medicine
DX: R07.89 Other chest pain (principal); R06.02 Shortness of breath; R11.0 Nausea; R42 Dizziness and giddiness; R05.9 Cough, unspecified; J44.89 Other specified chronic obstructive pulmonary disease; R00.0 Tachycardia, unspecified; K21.9 Gastro-esophageal reflux disease without esophagitis; I25.10 Atherosclerotic heart disease of native coronary artery without angina pectoris; E78.00 Pure hypercholesterolemia, unspecified; R91.8 Other nonspecific abnormal finding of lung field; I25.2 Old myocardial infarction; Z95.5 Presence of coronary angioplasty implant and graft; Z87.891 Personal history of nicotine dependence; Z79.82 Long term (current) use of aspirin; Z88.1 Allergy status to other antibiotic agents; Z88.8 Allergy status to other drugs, medicaments and biological substances
CPT/HCPCS: 99285; 71046; 71275; 80053; 84484; 85025; 85379; 93005; Q9967

== ENCOUNTER → 2025-01-28 10:23 | Outpatient (REF) | payer MEDICARE, OTHER, SELFPAY | LOC: RAD 10:23 | PROVIDERS: ATTENDING PHYSICIAN Orthopaedic Surgery; FAMILY PHYSICIAN Internal Medicine | DX: S84.11XA Injury of peroneal nerve at lower leg level, right leg, initial encounter (principal) | CPT/HCPCS: 76882 ==